=== PATIENT | female | born 1980 | race Caucasian/White ===

== ENCOUNTER 2019-03-17 23:22 | Emergency (ER) | payer BC ==
[~2019-03-17] VITALS: Ht 160 cm; Wt 102.1 kg
[2019-03-17 23:35] VITALS: BP_SYST 136
[2019-03-17] MEDS ORDERED: GENTAMICIN SULFATE 0.3% OPHT. 5 ML DROPS OP ONE (23:45)
[2019-03-17 23:56] VITALS: BP_SYST 128
== END 2019-03-17 23:50 | disposition home or self-care (01) ==
LOC: SED 23:22
DX: H10.9 Unspecified conjunctivitis (principal)
CPT/HCPCS: 99282; 99283

== ENCOUNTER 2019-08-30 01:05 | Emergency (ER) | payer BC ==
[~2019-08-30] VITALS: Ht 160 cm; Wt 99.8 kg
[2019-08-30 01:36] VITALS: BP_SYST 122
[2019-08-30] MEDS ORDERED: ACETAMINOPHEN 325 MG TABLET PO ONE (02:30)
[2019-08-30 02:50] LABS: BASOPHILS # (AUTO) 0.1 K/uL (0.0-0.2); BASOPHILS % (AUTO) 0.6 % (0.0-2.0); EOSINOPHILS # (AUTO) 0.1 K/uL (0.0-0.4); EOSINOPHILS % (AUTO) 1.1 % (0.0-4.0); HEMATOCRIT 43.8 % (36-48); HEMOGLOBIN 14.9 g/dL (12.0-16.0); LYMPHOCYTES % (AUTO) 19.9 % (20.5-51.5); MEAN CORPUSCULAR HEMOGLOBIN 30 pg (27-31); MEAN CORPUSCULAR HGB CONC 34 % (32-36); MEAN CORPUSCULAR VOLUME 89 fL (79.0-98.0); MONOCYTES # (AUTO) 0.8 K/uL (0.0-1.0); MONOCYTES % (AUTO) 8.3 % (1.7-9.3); NEUTROPHILS % (AUTO) 70.1 % (40.0-70.0); PLATELET COUNT (AUTO) 306 K/uL (130-430); RED BLOOD CELL COUNT(AUTO) 4.95 MIL/uL (4.2-6.2); RED CELL DISTRIBUTION WIDTH 13.1 % (9.0-15.0); WHITE BLOOD COUNT (AUTO) 10.1 K/uL (4.8-10.8)
[2019-08-30 03:03] LABS: CALCIUM 9.2 mg/dL (8.4-11.0); CREATININE 0.71 mg/dL (0.55-1.30); POTASSIUM 4.1 mmol/L (3.5-5.1)
[2019-08-30 03:08] LABS: INR 0.9 (0.8-1.2); PROTHROMBIN TIME 9.5 SECS (9.5-12.5)
[2019-08-30 03:10] LABS: ALBUMIN 3.9 g/dL (3.4-4.8); TOTAL BILIRUBIN 0.3 mg/dL (0.0-1.0)
[2019-08-30 03:55] VITALS: BP_SYST 128
== END 2019-08-30 03:55 | disposition home or self-care (01) ==
LOC: SED 01:05
DX: M79.661 Pain in right lower leg (principal)
CPT/HCPCS: 36415; 73590-TC; 80053; 81025; 82550-TC; 85025; 85610-TC; 85730-TC; 93971; 99284